=== PATIENT | female | born 1955 | race African-American/Black ===

== ENCOUNTER 2016-06-30 15:43 | Inpatient (IN) | payer MEDICAID ==
[~2016-06-30] VITALS: Ht 160 cm; Wt 88.5 kg
[~2016-06-30 15:43] MED LIST: ALBUTEROL0.83 MG/ML IH; AMITIZA24 MCG PO; AMITRIPTYLINE H25 M1 PO; AMITRIPTYLINE10 MG PO; AMOXICILLIN 50500 MG PO; AMOXICILLIN 8751 TAB PO; AUGMENTIN 875 M1 TAB PO; BACTRIM DS 8001 TAB PO; BIAXIN 500MG T500 MG PO; CELEBREX 200MG200 MG PO; COLACE 100100 MG/CAP PO; DONNATAL EXTENT1 TAB PO; FLAGYL; FLAGYL500 MG PO; FLEXERIL 1010 MG/TAB PO; HCTZ; HYDROXYZINE PAM25 MG PO; LIBRIUM 10M10 MG/CAP PO; LORTAB 5/500 501 TAB PO; MACROBID100 MG PO; METRONIDAZOLE500 MG PO; MOTRIN 200200 MG/TAB PO; NAPROSYN500 MG PO; NORCO 325 MG-51 TAB PO; OXYCODONE10 MG PO; PERCOCET 325 MG1 TA2 PO; PERCOCET 325 MG1 TAB PO; PERCOCET 5/321 UDTAB PO; PERCOCET 500 MG1 TAB PO; PERCOCET 650 MG1 TAB PO; PHENERGAN 25 TA25 MG PO; PHENERGAN25 MG RC; PREVPAC PO; PRILOSEC 20MG20 MG PO; PROTONIX20 MG PO; PROTONIX40 MG PO; PYRIDIUM200 M1 PO; REGLAN 10MG10 MG/TAB PO; SEPTRA DS 8001 TAB PO; TYLENOL ARTHRI650 M1 PO; TYLENOL W/COD1 UDTAB PO; ULTRACET TABL1 UDTAB PO; ULTRAM 50MG TAB50 MG PO; ULTRAM ER100 MG PO; VICODIN 5/5001 UDTAB PO; ZOFRAN 4MG T4 MG/TAB PO; [UNRECOGNIZED DRUG - OTHER]
[2016-06-30 16:22] VITALS: BP 126/78; PULSE 102; TEMP 99.2
[2016-06-30] MEDS ORDERED: TYLENOL 8 HR PO (17:08)
[2016-06-30] MEDS ORDERED: NEURONTIN400 MG/CAP PO (17:09)
[2016-06-30] MEDS ORDERED: ZOHYDRO ER30 MG PO (17:09)
[2016-06-30] MEDS ORDERED: ATIVAN 0.50.5 MG/TAB PO (17:10)
[2016-06-30] MEDS ORDERED: GLUCOPHAGE500 MG/TAB PO (17:11)
[2016-06-30] MEDS ORDERED: MINIPRESS 1M1 MG/CAP PO (17:12)
[2016-06-30 18:44] LABS: BASO # 0.1 (0.0-0.2); BASO % 0.5 % (0.0-2.0); EOS # 0.4 (0.0-0.7); EOS % 4.3 % (0-4.0); GRAN # 4.5 (1.4-6.5); GRAN % 47.7 % (42.2-75.2); LYMPH # 3.9 (1.2-3.4); LYMPH % 40.7 % (20.0-51.0); MEAN CELL VOLUME 83 fl (80.0-100.0); MEAN CORPUSCULAR HGB CONC 32 g/dl (33.0-37.0); MEAN PLATELET VOLUME 10.7 fl (7.4-10.4); MONO # 0.6 (0.1-0.6); MONO % 6.6 % (1.7-9.3); PLATELET COUNT 318 K/mm3 (130-400); RED BLOOD COUNT 4.08 M/mm3 (4.10-5.30); WHITE BLOOD COUNT 9.5 K/mm3 (4.8-10.8)
[2016-06-30 18:47] LABS: HEMATOCRIT 33.7 % (37.0-47.0); HEMOGLOBIN 10.8 g/dl (12.5-16.0); MEAN CORPUSCULAR HEMOGLOBIN 26 pg (27.0-31.0)
[2016-06-30 18:59] LABS: ADJUSTED CALCIUM 9.3 mg/dL (8.4-10.2); ALBUMIN 4.5 gm/dL (3.5-5.0); BILIRUBIN,TOTAL 0.6 mg/dL (0.0-1.0); CALCIUM 9.7 mg/dL (8.4-10.2); CREATININE, serum 1.53 mg/dL (0.52-1.25); POTASSIUM 3.2 mmol/L (3.4-5.0); TOTAL PROTEIN 9.2 gm/dL (6.4-8.2)
[2016-06-30 19:28] VITALS: BP 115/75; PULSE 112; TEMP 100.8
[2016-06-30 20:38] LABS: PH 5 (5-8); SQUAMOUS EPITHELIAL 0-2 /hpf; URINE APPEARANCE Clear; URINE BACTERIA None Seen /hpf; URINE BILIRUBIN Negative (NEGATIVE); URINE BLOOD Negative (NEGATIVE); URINE COLOR Yellow; URINE GLUCOSE Negative (NEGATIVE); URINE KETONE Negative (NEGATIVE); URINE RBC 0-2 /hpf; URINE UROBILINOGEN Negative (NEGATIVE); URINE WBC 0-2 /hpf
[2016-06-30 21:00] LABS: INFLUENZA B NEGATIVE
[2016-06-30 23:46] VITALS: BP 99/77; PULSE 97; TEMP 99.8
[2016-07-01 04:11] VITALS: BP 110/79; PULSE 86; TEMP 98
[2016-07-01 08:55] VITALS: BP 113/62; PULSE 95; TEMP 98
[2016-07-01 12:06] VITALS: BP 129/74; PULSE 87; TEMP 97.9
[2016-07-01 16:11] VITALS: BP 141/65; PULSE 97; TEMP 98.1
[2016-07-01 20:15] VITALS: BP 139/74; PULSE 109; TEMP 98.2
[2016-07-01 23:45] VITALS: BP 130/63; PULSE 104; TEMP 98.1
[2016-07-02 03:38] VITALS: BP 127/67; PULSE 91; TEMP 97.7
[2016-07-02 07:09] LABS: CALCIUM 9.9 mg/dL (8.4-10.2); CREATININE, serum 1.37 mg/dL (0.52-1.25); POTASSIUM 3.6 mmol/L (3.4-5.0)
[2016-07-02 07:33] VITALS: BP 150/79; PULSE 101; TEMP 98.3
[2016-07-02 11:47] VITALS: BP 182/84; PULSE 102; TEMP 98.3
[2016-07-02 12:35] VITALS: BP 155/92
[2016-07-02 12:59] LABS: BASO % 0.1 % (0.0-2.0); GRAN # 10.8 (1.4-6.5); GRAN % 87.4 % (42.2-75.2); LYMPH # 1.3 (1.2-3.4); LYMPH % 10.2 % (20.0-51.0); MEAN CELL VOLUME 83 fl (80.0-100.0); MEAN CORPUSCULAR HGB CONC 32 g/dl (33.0-37.0); MEAN PLATELET VOLUME 11.3 fl (7.4-10.4); MONO # 0.2 (0.1-0.6); MONO % 1.8 % (1.7-9.3); PLATELET COUNT 338 K/mm3 (130-400); RED BLOOD COUNT 3.77 M/mm3 (4.10-5.30); REDCELL DISTRIBUTION WIDTH-CV 14.3 % (11.5-14.5); WHITE BLOOD COUNT 12.4 K/mm3 (4.8-10.8)
[2016-07-02 13:03] LABS: HEMATOCRIT 31.4 % (37.0-47.0); HEMOGLOBIN 9.9 g/dl (12.5-16.0); MEAN CORPUSCULAR HEMOGLOBIN 26 pg (27.0-31.0)
[2016-07-02 15:53] VITALS: BP 176/90; PULSE 106; TEMP 97.9
[2016-07-02 19:50] VITALS: BP 160/96; PULSE 98; TEMP 98.4
[2016-07-03] VITALS (9 sets, daily range): BP systolic 129–182; BP diastolic 58–93; PULSE 84–101; TEMP 97.6–98.9
[2016-07-03 06:34] LABS: MEAN CELL VOLUME 82 fl (80.0-100.0); MEAN CORPUSCULAR HGB CONC 32 g/dl (33.0-37.0); MEAN PLATELET VOLUME 10.7 fl (7.4-10.4); PLATELET COUNT 308 K/mm3 (130-400); RED BLOOD COUNT 3.61 M/mm3 (4.10-5.30); REDCELL DISTRIBUTION WIDTH-CV 14.2 % (11.5-14.5); WHITE BLOOD COUNT 14.7 K/mm3 (4.8-10.8)
[2016-07-03 06:36] LABS: HEMATOCRIT 29.7 % (37.0-47.0); HEMOGLOBIN 9.4 g/dl (12.5-16.0); MEAN CORPUSCULAR HEMOGLOBIN 26 pg (27.0-31.0)
[2016-07-03 06:52] LABS: CALCIUM 9.9 mg/dL (8.4-10.2); CREATININE, serum 1.24 mg/dL (0.52-1.25); POTASSIUM 3.3 mmol/L (3.4-5.0)
[2016-07-03 10:28] LABS: MAGNESIUM 2.4 mg/dL (1.6-2.3)
[2016-07-04 04:12] VITALS: BP 156/85; PULSE 66; TEMP 98.2
[2016-07-04 06:52] LABS: MEAN CELL VOLUME 82 fl (80.0-100.0); MEAN CORPUSCULAR HGB CONC 32 g/dl (33.0-37.0); MEAN PLATELET VOLUME 10.8 fl (7.4-10.4); PLATELET COUNT 316 K/mm3 (130-400); RED BLOOD COUNT 3.64 M/mm3 (4.10-5.30); REDCELL DISTRIBUTION WIDTH-CV 14.3 % (11.5-14.5); WHITE BLOOD COUNT 12.4 K/mm3 (4.8-10.8)
[2016-07-04 06:57] LABS: CALCIUM 9.5 mg/dL (8.4-10.2); CREATININE, serum 1.17 mg/dL (0.52-1.25); POTASSIUM 3.4 mmol/L (3.4-5.0)
[2016-07-04 06:59] LABS: ADD PATHOLOGY DIFF REVIEW NO; HEMATOCRIT 29.7 % (37.0-47.0); HEMOGLOBIN 9.4 g/dl (12.5-16.0); MEAN CORPUSCULAR HEMOGLOBIN 26 pg (27.0-31.0)
[2016-07-04 07:26] LABS: BAND 4 % (0-10); NEUTROPHILS 79 % (42.0-75.2); TOTAL CELLS COUNTED 100
[2016-07-04 07:27] LABS: PLATELET ESTIMATE NORMAL (NORMAL)
[2016-07-04 07:58] VITALS: BP 191/74; PULSE 60; TEMP 98.5
[2016-07-04 12:15] VITALS: BP 160/81; PULSE 68; TEMP 98.5
[2016-07-04 16:43] VITALS: BP 156/86; PULSE 69; TEMP 98.5
[2016-07-04 19:38] VITALS: BP 130/74; PULSE 88; TEMP 98.4
[2016-07-04 23:15] VITALS: BP 154/78; PULSE 84; TEMP 98.3
[2016-07-05 03:09] VITALS: BP 152/79; PULSE 109; TEMP 98.2
[2016-07-05 07:19] LABS: MEAN CELL VOLUME 81 fl (80.0-100.0); MEAN CORPUSCULAR HGB CONC 32 g/dl (33.0-37.0); MEAN PLATELET VOLUME 11.3 fl (7.4-10.4); PLATELET COUNT 327 K/mm3 (130-400); RED BLOOD COUNT 3.72 M/mm3 (4.10-5.30); REDCELL DISTRIBUTION WIDTH-CV 14.4 % (11.5-14.5); WHITE BLOOD COUNT 12.2 K/mm3 (4.8-10.8)
[2016-07-05 07:20] LABS: HEMATOCRIT 30.2 % (37.0-47.0); HEMOGLOBIN 9.7 g/dl (12.5-16.0); MEAN CORPUSCULAR HEMOGLOBIN 26 pg (27.0-31.0)
[2016-07-05 07:31] LABS: CALCIUM 9.6 mg/dL (8.4-10.2); CREATININE, serum 1.26 mg/dL (0.52-1.25); POTASSIUM 3.4 mmol/L (3.4-5.0)
[2016-07-05 07:59] VITALS: BP 117/68; PULSE 91; TEMP 99.7
[2016-07-05 11:41] VITALS: BP 164/66; PULSE 84; TEMP 98.5
[2016-07-05] MEDS ORDERED: MEDROL 4MG DOSPA4 MG PO (14:00)
[2016-07-05] MEDS ORDERED: DOXYCYCLINE 10100 MG PO (14:00)
[2016-07-05] MEDS ORDERED: IPRATROPIUM BROM3 M1 IH (14:01)
[2016-07-05] MEDS ORDERED: PERFOROMIS20 MCG/2 M IH (14:01)
[2016-07-05] MEDS ORDERED: PRINIVIL40 MG PO (14:01)
[2016-07-05] MEDS ORDERED: HCTZ 25MG TAB25 MG PO (14:02)
[2016-07-05] MEDS ORDERED: PULMICORT R1 MG/2 ML IH (14:03)
[2016-07-05] MEDS ORDERED: FLONASEALLERGY NS (14:03)
[2016-07-05] MEDS ORDERED: LEVEMIR FLEX100 U/ML SQ (14:04)
[2016-07-05] MEDS ORDERED: NOVOLOG FLEX100 U/ML SQ (14:04)
== END 2016-07-05 16:45 | disposition home or self-care (01) | DRG 164 ==
LOC: MEDICAL 15:43 → PEDS 07-02 11:59 → MEDICAL 07-02 12:01
PROVIDERS: Internal Medicine; Internal Medicine Pulmonary Disease; Nurse Practitioner Family
PROC: 0B958ZZ Drainage of Right Middle Lobe Bronchus, Via Natural or Artificial Opening Endoscopic (ICD-10-PCS; 2016-07-03)
PROC: 0B968ZZ Drainage of Right Lower Lobe Bronchus, Via Natural or Artificial Opening Endoscopic (ICD-10-PCS; 2016-07-03)
PROC: 0B988ZZ Drainage of Left Upper Lobe Bronchus, Via Natural or Artificial Opening Endoscopic (ICD-10-PCS; 2016-07-03)
PROC: 0B9B8ZZ Drainage of Left Lower Lobe Bronchus, Via Natural or Artificial Opening Endoscopic (ICD-10-PCS; 2016-07-03)
PROC: 0B9 Respiratory System, Drainage (ICD-10-PCS; principal; 2016-07-03 10:30)
DX: J20.5 Acute bronchitis due to respiratory syncytial virus (principal); J45.21 Mild intermittent asthma with (acute) exacerbation; N17.9 Acute kidney failure, unspecified; Z87.891 Personal history of nicotine dependence; I10 Essential (primary) hypertension; G89.21 Chronic pain due to trauma; E11.65 Type 2 diabetes mellitus with hyperglycemia; E11.42 Type 2 diabetes mellitus with diabetic polyneuropathy; E11.21 Type 2 diabetes mellitus with diabetic nephropathy; Z79.4 Long term (current) use of insulin; E87.6 Hypokalemia
CPT/HCPCS: 99223-AI; 99232-AI; 99233-AI; 99239; C1751; J0360; J0456; J0696; J1644; J1650; J1815; J2704; J2920; J2930; J7030; J7050

== ENCOUNTER → 2016-08-17 | Outpatient (CLI) | payer MEDICAID ==
[~2016-08-17] MED LIST changes: +ATIVAN 0.50.5 MG/TAB PO; +DOXYCYCLINE 10100 MG PO; +FLONASEALLERGY NS; +GLUCOPHAGE500 MG/TAB PO; +HCTZ 25MG TAB25 MG PO; +IPRATROPIUM BROM3 M1 IH; +LEVEMIR FLEX100 U/ML SQ; +MEDROL 4MG DOSPA4 MG PO; +MINIPRESS 1M1 MG/CAP PO; +NEURONTIN400 MG/CAP PO; +NOVOLOG FLEX100 U/ML SQ; +PERFOROMIS20 MCG/2 M IH; +PRINIVIL40 MG PO; +PULMICORT R1 MG/2 ML IH; +TYLENOL 8 HR PO; +ZOHYDRO ER30 MG PO
== END ==
LOC: SUN.DIA 08:11
DX: E11.65 Type 2 diabetes mellitus with hyperglycemia (principal); Z79.84 Long term (current) use of oral hypoglycemic drugs; E66.9 Obesity, unspecified; Z68.34 Body mass index [BMI] 34.0-34.9, adult; Z71.3 Dietary counseling and surveillance; E78.5 Hyperlipidemia, unspecified; I10 Essential (primary) hypertension
CPT/HCPCS: G0108

== ENCOUNTER → 2017-06-08 | Outpatient (CLI) | payer MEDICAID | LOC: MC.RAD 13:40 | DX: N63.12 Unspecified lump in the right breast, upper inner quadrant (principal) ==

== ENCOUNTER → 2017-07-28 | Outpatient (CLI) | payer MEDICAID | LOC: MC.RAD 07-27 10:00 | DX: N63.10 Unspecified lump in the right breast, unspecified quadrant (principal) ==

== ENCOUNTER → 2018-03-25 | Outpatient (CLI) | payer MEDICARE | LOC: MC.RAD 09:30 | DX: N63.10 Unspecified lump in the right breast, unspecified quadrant (principal); Z98.82 Breast implant status | CPT/HCPCS: G0279 ==

== ENCOUNTER 2024-01-22 12:29 | Emergency (ER) | payer MEDICARE ==
[~2024-01-22] VITALS: Ht 160 cm; Wt 85.0 kg
[2024-01-22 13:03] VITALS: TEMP 98.9
[2024-01-22] MEDS ORDERED: NS 1,000 ML IV ONE (14:00)
[2024-01-22 14:29] LABS: BASO % 0.5 % (0.0-2.0); EOS # 0.2 K/mm3 (0.0-0.7); EOS % 1.9 % (0.0-4.0); GRAN # 5.7 K/mm3 (1.4-6.5); GRAN % 64.4 % (42.2-75.2); HEMOGLOBIN 10.7 g/dl (12.5-16.0); LYMPH # 2.3 K/mm3 (1.2-3.4); LYMPH % 25.8 % (20.0-51.0); MEAN CELL VOLUME 85 fl (80.0-100.0); MEAN CORPUSCULAR HEMOGLOBIN 26 pg (27-31); MEAN CORPUSCULAR HGB CONC 31 g/dl (33.0-37.0); MEAN PLATELET VOLUME 10.2 fl (7.4-10.4); MONO # 0.6 K/mm3 (0.1-0.6); MONO % 6.9 % (1.7-9.3); RED BLOOD COUNT 4.05 M/mm3 (4.10-5.30); REDCELL DISTRIBUTION WIDTH-CV 15.9 % (11.5-14.5)
[2024-01-22 14:42] LABS: ALANINE AMINOTRANSFERASE 12 U/L (0-55); ALBUMIN 3.7 g/dL (3.4-4.8); ALKALINE PHOSPHATASE 114 U/L (40-150); ANION GAP 12 mmol/L (7-16); AST,SGOT 14 U/L (5-34); BILIRUBIN,TOTAL 0.3 mg/dL (0.2-1.2); BLOOD UREA NITROGEN 13 mg/dL (10-20); CALCIUM 9.5 mg/dL (8.4-10.2); CHLORIDE 111 mEq/L (98-107); CREATININE, serum 1.45 mg/dL (0.57-1.11); GLUCOSE 116 mg/dL (70-99); POTASSIUM 3.8 mEq/L (3.5-4.5); SODIUM 142 mEq/L (136-145); TOTAL PROTEIN 8.1 g/dl (6.2-8.1)
[2024-01-22 14:49] LABS: TROPONIN-I < 0.010 ng/mL (0.00-0.033)
[2024-01-22 14:52] LABS: HEMATOCRIT 34.3 % (37.0-47.0)
[2024-01-22 14:53] LABS: PLATELET COUNT 467 K/mm3 (130-400)
[2024-01-22 16:22] VITALS: BP 141/86; PULSE 92
== END 2024-01-22 16:22 | disposition home or self-care (01) ==
LOC: COL.ER 12:29
PROVIDERS: Physician Assistant
DX: U07.1 COVID-19 (principal); R05.9 Cough, unspecified; Z91.040 Latex allergy status
CPT/HCPCS: J7030